=== PATIENT | male | born 1960 | race Caucasian/White ===

== ENCOUNTER 2017-10-27 19:57 | Inpatient (IN) | payer BC, OTHER ==
[2017-10-27 20:16] LABS: ADD MAN DIFF? NO
[2017-10-27 20:17] LABS: WHITE BLOOD COUNT 8.8 10^3/ul (4.8-10.8)
[2017-10-27 20:17] LABS: BASOPHIL # 0.1 10^3/ul (0.0-0.1); BASOPHILS % 1.1 % (0.0-2.0); EOSINOPHILS # 0.2 10^3/ul (0.0-0.5); EOSINOPHILS % 1.7 % (0.0-7.0); HEMATOCRIT 46.8 % (42.0-52.0); HEMOGLOBIN 15.1 g/dl (14.0-18.0); LYMPHOCYTES # 2.4 10^3/ul (0.8-2.9); LYMPHOCYTES % 27.9 % (15.0-51.0); MEAN CORPUSCULAR HEMOGLOBIN 29.4 pg (29.0-33.0); MEAN CORPUSCULAR HGB CONC 32.3 g/dl (32.0-37.0); MEAN CORPUSCULAR VOLUME 91.2 fl (82.0-101.0); MEAN PLATELET VOLUME 10.8 fl (7.4-10.4); MONOCYTE # 0.7 10^3/ul (0.3-0.9); NEUTROPHIL # 5.3 10^3/ul (1.6-7.5); NEUTROPHILS % 60.8 % (39.0-77.0); PLATELET COUNT 196 10^3/UL (140-415); RED BLOOD COUNT 5.13 10^6/ul (4.70-6.10); RED CELL DISTRIBUTION WIDTH 14.3 % (11.5-14.5)
[2017-10-27 20:34] LABS: INR 2.76; PT RATIO 2.3
[2017-10-27 20:38] LABS: BLOOD UREA NITROGEN 19 mg/dl (7-20); CALCIUM 9.7 mg/dl (8.4-10.2); CARBON DIOXIDE 22 mmol/L (21-31); CHLORIDE 103 mmol/L (97-110); CREATININE 1.24 mg/dl (0.61-1.24); GLUCOSE 135 mg/dl (70-220); SODIUM 139 mmol/L (135-144)
[2017-10-27 20:44] LABS: ANION GAP 18 (8-16); POTASSIUM 4.2 mmol/L (3.5-5.1)
[2017-10-27 20:48] LABS: TROPONIN-I 0.057 ng/ml (0.00-0.12)
[2017-10-27] MEDS: ASPIRIN 325 MG TAB PO (21:14)
[2017-10-27] MEDS ORDERED: DEXTROSE 5%-0.45% NACL 1,000 ML IV (21:41)
[2017-10-27] MEDS ORDERED: ACETAMINOPHEN 325 MG TAB PO ×2 (22:00)
[2017-10-27] MEDS ORDERED: BISACODYL (EC) 5 MG TAB PO (22:00)
[2017-10-27] MEDS ORDERED: morphine 2 MG INJ IV (22:00)
[2017-10-27] MEDS ORDERED: ZOLPIDEM 5 MG TAB PO (22:00)
[2017-10-27] MEDS ORDERED: ONDANSETRON 4 MG INJ IV ×2 (22:00)
[2017-10-27] MEDS ORDERED: MAGNESIUM HYDROXIDE 30ML CUP PO (22:00)
[2017-10-27] MEDS ORDERED: DOCUSATE SODIUM 100 MG CAP PO (22:00)
[2017-10-27] MEDS ORDERED: HYDROCODONE/APAP (5/325) TAB PO (22:00)
[2017-10-27] MEDS ORDERED: LORAZEPAM 2 MG INJ IV (22:00)
[2017-10-27] MEDS ORDERED: NACL 0.9% 3 ML SYG IV (22:00)
[2017-10-28 00:18] LABS: ADD UMIC YES; UR ASCORBIC ACID 40 mg/dL (NEGATIVE); UR BACTERIA FEW /HPF (NONE SEEN); UR BILIRUBIN (Dip) NEGATIVE (NEGATIVE); UR BLOOD (Dip) NEGATIVE (NEGATIVE); UR CLARITY SLIGHTLY CLOUDY (CLEAR); UR COLOR AMBER (YELLOW); UR GLUCOSE (Dip) 1+ mg/dL (NEGATIVE); UR KETONES (Dip) TRACE mg/dL (NEGATIVE); UR LEUKOCYTE ESTERASE (Dip) NEGATIVE Leu/ul (NEGATIVE); UR MUCUS MANY /HPF (NONE SEEN); UR NITRITE (Dip) NEGATIVE (NEGATIVE); UR RBC 10 /HPF (0-5); UR SPECIFIC GRAVITY (Dip) 1.024 (1.003-1.030); UR SQUAMOUS EPITHELIAL CELL FEW /HPF (FEW); UR TOTAL PROTEIN (Dip) 3+ mg/dl (NEGATIVE); UR UROBILINOGEN (Dip) 2+ mg/dL (NEGATIVE); UR WBC 14 /HPF (0-5)
[2017-10-28 00:22] LABS: CREATINE KINASE 134 IU/L (23-200)
[2017-10-28 00:31] LABS: AMPHETAMINE/METHAMPHETAMINE Negative (NEGATIVE); BARBITURATES Negative (NEGATIVE); BENZODIAZEPINES Negative (NEGATIVE); CANNABINOIDS Negative (NEGATIVE); COCAINE Negative (NEGATIVE); OPIATES Negative (NEGATIVE)
[2017-10-28 00:32] LABS: CK INDEX 1.2; TROPONIN-I 0.115 ng/ml (0.00-0.12)
[2017-10-28 00:40] LABS: CK-MB 1.57 ng/ml (0.0-2.4)
[2017-10-28 04:33] LABS: CREATINE KINASE 191 IU/L (23-200)
[2017-10-28 04:46] LABS: CK INDEX 1.1
[2017-10-28 04:47] LABS: CK-MB 2.17 ng/ml (0.0-2.4); TROPONIN-I 0.154 ng/ml (0.00-0.12)
[2017-10-28 04:56] LABS: ADD MAN DIFF? NO
[2017-10-28 05:01] LABS: WHITE BLOOD COUNT 8.3 10^3/ul (4.8-10.8)
[2017-10-28 05:01] LABS: BASOPHIL # 0.1 10^3/ul (0.0-0.1); BASOPHILS % 0.8 % (0.0-2.0); EOSINOPHILS # 0.1 10^3/ul (0.0-0.5); EOSINOPHILS % 1.4 % (0.0-7.0); HEMATOCRIT 43.1 % (42.0-52.0); HEMOGLOBIN 13.9 g/dl (14.0-18.0); LYMPHOCYTES # 1.4 10^3/ul (0.8-2.9); LYMPHOCYTES % 16.3 % (15.0-51.0); MEAN CORPUSCULAR HEMOGLOBIN 29.7 pg (29.0-33.0); MEAN CORPUSCULAR HGB CONC 32.3 g/dl (32.0-37.0); MEAN CORPUSCULAR VOLUME 92.1 fl (82.0-101.0); MONOCYTE # 0.7 10^3/ul (0.3-0.9); MONOCYTES % 8.4 % (0.0-11.0); NEUTROPHILS % 72.7 % (39.0-77.0); PLATELET COUNT 179 10^3/UL (140-415); RED BLOOD COUNT 4.68 10^6/ul (4.70-6.10); RED CELL DISTRIBUTION WIDTH 14.6 % (11.5-14.5)
[2017-10-28 05:45] LABS: ALANINE AMINOTRANSFERASE 34 IU/L (13-69); ALBUMIN 4.2 g/dl (3.3-4.9); ALBUMIN/GLOBULIN RATIO 1.35; ALKALINE PHOSPHATASE 114 IU/L (42-121); ANION GAP 15 (8-16); ASPARTATE AMINO TRANSFERASE 25 IU/L (15-46); BILIRUBIN,INDIRECT 0.3 mg/dl (0-1.1); BILIRUBIN,TOTAL 0.3 mg/dl (0.2-1.3); BLOOD UREA NITROGEN 23 mg/dl (7-20); CALCIUM 9.3 mg/dl (8.4-10.2); CARBON DIOXIDE 25 mmol/L (21-31); CHLORIDE 106 mmol/L (97-110); CHOL/HDL RATIO 2.7 RATIO; CHOLESTEROL 114 mg/dl (100-200); GLUCOSE 103 mg/dl (70-220); HDL CHOLESTEROL 41 mg/dl (28-71); LDL CHOLESTEROL,CALCULATED 60 mg/dl; MAGNESIUM 1.9 mg/dl (1.7-2.5); POTASSIUM 4.5 mmol/L (3.5-5.1); SODIUM 141 mmol/L (135-144); TOTAL PROTEIN 7.3 g/dl (6.1-8.1); TRIGLYCERIDES 65 mg/dl (0-149)
[2017-10-28] MEDS ORDERED: ALBUTEROL/IPRATROPIUM (NEB) 3 ML AMP HHN (06:00)
[2017-10-28] MEDS ORDERED: NICOTINE POLACRILEX 2 MG GUM BUCCAL (06:00)
[2017-10-28 06:15] LABS: THYROID STIMULATING HORMONE 0.668 MIU/L (0.465-4.680)
[2017-10-28] MEDS: metFORMIN (XR) 500 MG TAB PO ×2 (08:00→20:00)
[2017-10-28] MEDS: AMIODARONE 200 MG TAB PO (08:43)
[2017-10-28] MEDS: NICOTINE (7 MG/24 HR) PATCH TRANSDERM ×2 (08:43→08:49)
[2017-10-28] MEDS: BENAZEPRIL 20 MG TAB PO (08:45)
[2017-10-28] MEDS: AMLODIPINE 5 MG TAB PO (08:45)
[2017-10-28] MEDS: ASPIRIN (EC) 81 MG TAB PO (08:49)
[2017-10-28] MEDS: FAMOTIDINE 20 MG INJ IV ×2 (08:49→22:25)
[2017-10-28] MEDS ORDERED: BENAZEPRIL PO (09:00)
[2017-10-28] MEDS ORDERED: AMLODIPINE BESYLATE PO (09:00)
[2017-10-28] MEDS ORDERED: ASPIRIN 81 MG TAB PO (09:00)
[2017-10-28] MEDS ORDERED: [UNRECOGNIZED DRUG - OTHER] PO (09:00)
[2017-10-28 10:20] LABS: HEMOGLOBIN A1C 5.5 % (0-5.9)
[2017-10-28 10:41] LABS: CREATINE KINASE 193 IU/L (23-200)
[2017-10-28 10:53] LABS: CK INDEX 1.2; TROPONIN-I 0.112 ng/ml (0.00-0.12)
[2017-10-28 10:55] LABS: CK-MB 2.29 ng/ml (0.0-2.4)
[2017-10-28] MEDS: LORAZEPAM 2 MG INJ IV (12:03)
[2017-10-28] MEDS: HYPOGLYCEMIA PROTOCOL when Glucose is <70 mg/dL or symptomatic <90 mg/dL. XX (14:32)
[2017-10-28] MEDS ORDERED: DEXTROSE 50% 50 ML SYRINGE IV ×2 (15:00)
[2017-10-28] MEDS ORDERED: GLUCOSE GEL 15 GRAM TUBE BUCCAL (15:00)
[2017-10-28] MEDS ORDERED: GLUCOSE GEL 15 GRAM TUBE PO ×2 (15:00)
[2017-10-28] MEDS ORDERED: GLUCAGON 1 MG INJ IM (15:00)
[2017-10-28] MEDS: SOD CHLORIDE 0.9% 100 ML (16:37)
[2017-10-28] MEDS: IOHEXOL 100 ML (16:37)
[2017-10-28] MEDS: INSULIN ASPART [NOVOLOG] 3 ML PEN SC (21:00)
[2017-10-28] MEDS: BUPROPION (SR) 100 MG TAB PO (21:00)
[2017-10-28] MEDS: TAMSULOSIN (SR) 0.4 MG CAP PO (22:25)
[2017-10-28] MEDS: ATORVASTATIN 40 MG TAB PO (22:25)
[2017-10-29] MEDS: WARFARIN 5 MG TAB PO (00:50)
[2017-10-29 06:07] LABS: ADD MAN DIFF? NO
[2017-10-29 06:32] LABS: BASOPHIL # 0.1 10^3/ul (0.0-0.1); BASOPHILS % 0.9 % (0.0-2.0); EOSINOPHILS # 0.2 10^3/ul (0.0-0.5); EOSINOPHILS % 2.1 % (0.0-7.0); HEMOGLOBIN 13.8 g/dl (14.0-18.0); LYMPHOCYTES # 1.7 10^3/ul (0.8-2.9); LYMPHOCYTES % 21.8 % (15.0-51.0); MEAN CORPUSCULAR HEMOGLOBIN 30.1 pg (29.0-33.0); MEAN CORPUSCULAR HGB CONC 32.1 g/dl (32.0-37.0); MEAN CORPUSCULAR VOLUME 93.7 fl (82.0-101.0); MEAN PLATELET VOLUME 11.2 fl (7.4-10.4); MONOCYTE # 0.5 10^3/ul (0.3-0.9); MONOCYTES % 6.8 % (0.0-11.0); NEUTROPHIL # 5.4 10^3/ul (1.6-7.5); PLATELET COUNT 166 10^3/UL (140-415); RED BLOOD COUNT 4.59 10^6/ul (4.70-6.10); RED CELL DISTRIBUTION WIDTH 14.6 % (11.5-14.5)
[2017-10-29 06:32] LABS: WHITE BLOOD COUNT 7.9 10^3/ul (4.8-10.8)
[2017-10-29 06:35] LABS: ALANINE AMINOTRANSFERASE 32 IU/L (13-69); ALBUMIN/GLOBULIN RATIO 1.37; ALKALINE PHOSPHATASE 106 IU/L (42-121); ANION GAP 12 (8-16); ASPARTATE AMINO TRANSFERASE 27 IU/L (15-46); BILIRUBIN,INDIRECT 0.3 mg/dl (0-1.1); BILIRUBIN,TOTAL 0.3 mg/dl (0.2-1.3); BLOOD UREA NITROGEN 22 mg/dl (7-20); CALCIUM 9.6 mg/dl (8.4-10.2); CARBON DIOXIDE 26 mmol/L (21-31); CHLORIDE 106 mmol/L (97-110); CREATININE 1.04 mg/dl (0.61-1.24); GLUCOSE 114 mg/dl (70-220); POTASSIUM 4.6 mmol/L (3.5-5.1); SODIUM 139 mmol/L (135-144); TOTAL PROTEIN 6.9 g/dl (6.1-8.1)
[2017-10-29 06:38] LABS: CREATINE KINASE 151 IU/L (23-200)
[2017-10-29 06:39] LABS: INR 3.01; PROTIME 32.1 Sec (11.9-14.9); PT RATIO 2.5
[2017-10-29 06:49] LABS: CK INDEX 0.9; TROPONIN-I 0.088 ng/ml (0.00-0.12)
[2017-10-29 06:57] LABS: FREE T4 (FREE THYROXINE) 1.17 ng/dl (0.64-1.79)
[2017-10-29] MEDS: INSULIN ASPART [NOVOLOG] 3 ML PEN SC ×2 (07:55→11:46)
[2017-10-29] MEDS: metFORMIN (XR) 500 MG TAB PO (08:05)
[2017-10-29 08:09] LABS: MAGNESIUM 1.8 mg/dl (1.7-2.5)
[2017-10-29 08:09] LABS: CHOL/HDL RATIO 2.8 RATIO; CHOLESTEROL 111 mg/dl (100-200); HDL CHOLESTEROL 39 mg/dl (28-71); LDL CHOLESTEROL,CALCULATED 56 mg/dl; TRIGLYCERIDES 81 mg/dl (0-149)
[2017-10-29 08:12] LABS: B-TYPE NATRIURETIC PEPTIDE 1260 PG/ML (0-125)
[2017-10-29] MEDS: AMIODARONE 200 MG TAB PO ×2 (09:00)
[2017-10-29] MEDS: NICOTINE (7 MG/24 HR) PATCH TRANSDERM (09:09)
[2017-10-29] MEDS: ASPIRIN (EC) 81 MG TAB PO (09:16)
[2017-10-29] MEDS: FAMOTIDINE 20 MG TAB PO (09:25)
== END 2017-10-29 13:32 | disposition home or self-care (01) | DRG 65 ==
LOC: E/R 19:57 → TEL 21:43
PROVIDERS: Hospitalist
DX: I63.9 Cerebral infarction, unspecified (principal); Z68.41 Body mass index [BMI] 40.0-44.9, adult; I42.9 Cardiomyopathy, unspecified; E66.01 Morbid (severe) obesity due to excess calories; I11.0 Hypertensive heart disease with heart failure; I50.9 Heart failure, unspecified; I48.0 Paroxysmal atrial fibrillation; I48.2 Chronic atrial fibrillation; I25.10 Atherosclerotic heart disease of native coronary artery without angina pectoris; E78.5 Hyperlipidemia, unspecified; E11.9 Type 2 diabetes mellitus without complications; N40.0 Benign prostatic hyperplasia without lower urinary tract symptoms; F32.9 Major depressive disorder, single episode, unspecified; G47.33 Obstructive sleep apnea (adult) (pediatric); I25.5 Ischemic cardiomyopathy; F17.210 Nicotine dependence, cigarettes, uncomplicated; Z71.3 Dietary counseling and surveillance; Z79.82 Long term (current) use of aspirin; Z79.4 Long term (current) use of insulin; Z79.01 Long term (current) use of anticoagulants; Z95.1 Presence of aortocoronary bypass graft; Z95.2 Presence of prosthetic heart valve
CPT/HCPCS: 36415; 70450; 70496; 70544; 70549; 70551; 71045; 80048; 80053; 80061; 80307; 81001; 82550; 82553; 82962; 83036; 83735; 83880; 84439; 84443; 84484; 85025; 85610; 85730; 87081; 87086; 92610; 93005; 93306; 93880; 96374; 97163; 99291-25

== ENCOUNTER 2018-01-22 14:57 | Inpatient (IN) | payer BC ==
[2018-01-22 15:21] LABS: ADD MAN DIFF? NO
[2018-01-22] MEDS: ASPIRIN 81 MG TAB PO (15:22)
[2018-01-22] MEDS: FUROSEMIDE 40 MG INJ IV (15:22)
[2018-01-22] MEDS: NITROGLYCERIN 2% 1 GM OINT PKT TD (15:23)
[2018-01-22 15:25] LABS: BASOPHIL # 0.1 10^3/ul (0.0-0.1); EOSINOPHILS # 0.2 10^3/ul (0.0-0.5); EOSINOPHILS % 2.7 % (0.0-7.0); HEMATOCRIT 43.9 % (42.0-52.0); HEMOGLOBIN 14.3 g/dl (14.0-18.0); LYMPHOCYTES # 1.6 10^3/ul (0.8-2.9); LYMPHOCYTES % 22.8 % (15.0-51.0); MEAN CORPUSCULAR HEMOGLOBIN 29.6 pg (29.0-33.0); MEAN CORPUSCULAR HGB CONC 32.6 g/dl (32.0-37.0); MEAN CORPUSCULAR VOLUME 90.9 fl (82.0-101.0); MEAN PLATELET VOLUME 11.6 fl (7.4-10.4); MONOCYTE # 0.5 10^3/ul (0.3-0.9); MONOCYTES % 6.9 % (0.0-11.0); NEUTROPHIL # 4.7 10^3/ul (1.6-7.5); NEUTROPHILS % 66.3 % (39.0-77.0); PLATELET COUNT 122 10^3/UL (140-415); RED BLOOD COUNT 4.83 10^6/ul (4.70-6.10); RED CELL DISTRIBUTION WIDTH 14.5 % (11.5-14.5)
[2018-01-22 15:25] LABS: WHITE BLOOD COUNT 7.1 10^3/ul (4.8-10.8)
[2018-01-22] MEDS ORDERED: ONDANSETRON 4 MG INJ IV ×2 (15:30→17:30)
[2018-01-22] MEDS ORDERED: ACETAMINOPHEN 325 MG TAB PO ×2 (15:30→17:30)
[2018-01-22 15:41] LABS: ANION GAP 16 (8-16); BLOOD UREA NITROGEN 20 mg/dl (7-20); CARBON DIOXIDE 25 mmol/L (21-31); CHLORIDE 105 mmol/L (97-110); CREATININE 1.15 mg/dl (0.61-1.24); GLUCOSE 148 mg/dl (70-220); POTASSIUM 3.7 mmol/L (3.5-5.1); SODIUM 142 mmol/L (135-144)
[2018-01-22 15:52] LABS: TROPONIN-I 0.061 ng/ml (0.00-0.12)
[2018-01-22 15:55] LABS: INR 4.99; PROTIME 48.1 Sec (11.9-14.9); PT RATIO 3.8
[2018-01-22 15:56] LABS: PARTIAL THROMBOPLASTIN TIME 60.4 Sec (25.0-35.0)
[2018-01-22] MEDS ORDERED: MAGNESIUM HYDROXIDE 30ML CUP PO (17:30)
[2018-01-22] MEDS ORDERED: DOCUSATE SODIUM 100 MG CAP PO (17:30)
[2018-01-22] MEDS ORDERED: BISACODYL 10 MG SUPP PR (17:30)
[2018-01-22] MEDS ORDERED: NITROGLYCERIN (SL) 0.4 MG TAB SL (17:30)
[2018-01-22] MEDS ORDERED: NACL 0.9% 3 ML SYG IV (17:30)
[2018-01-22] MEDS: NITROGLYCERIN (SL) 0.4 MG TAB SL (18:11)
[2018-01-22] MEDS: FAMOTIDINE 20 MG TAB PO (20:26)
[2018-01-22] MEDS: ATORVASTATIN 40 MG TAB PO (20:26)
[2018-01-22] MEDS: LORAZEPAM 0.5 MG TAB PO (23:25)
[2018-01-22 23:38] LABS: CREATINE KINASE 103 IU/L (23-200)
[2018-01-22 23:50] LABS: CK INDEX 1.9; TROPONIN-I 0.108 ng/ml (0.00-0.12)
[2018-01-23 00:04] LABS: CK-MB 1.99 ng/ml (0.0-2.4)
[2018-01-23] MEDS: morphine 2 MG INJ IV (03:24)
[2018-01-23 06:48] LABS: ADD MAN DIFF? NO
[2018-01-23 06:51] LABS: BASOPHIL # 0.1 10^3/ul (0.0-0.1); EOSINOPHILS # 0.2 10^3/ul (0.0-0.5); EOSINOPHILS % 2.9 % (0.0-7.0); HEMATOCRIT 43.6 % (42.0-52.0); LYMPHOCYTES # 1.5 10^3/ul (0.8-2.9); LYMPHOCYTES % 18.9 % (15.0-51.0); MEAN CORPUSCULAR HEMOGLOBIN 29.3 pg (29.0-33.0); MEAN CORPUSCULAR HGB CONC 32.1 g/dl (32.0-37.0); MEAN CORPUSCULAR VOLUME 91.2 fl (82.0-101.0); MEAN PLATELET VOLUME 11.3 fl (7.4-10.4); MONOCYTE # 0.5 10^3/ul (0.3-0.9); MONOCYTES % 6.4 % (0.0-11.0); NEUTROPHIL # 5.5 10^3/ul (1.6-7.5); NEUTROPHILS % 70.4 % (39.0-77.0); PLATELET COUNT 127 10^3/UL (140-415); POSITIVE DIFF @See below; RED BLOOD COUNT 4.78 10^6/ul (4.70-6.10); RED CELL DISTRIBUTION WIDTH 14.6 % (11.5-14.5)
[2018-01-23 06:51] LABS: WHITE BLOOD COUNT 7.9 10^3/ul (4.8-10.8)
[2018-01-23] MEDS: FUROSEMIDE 40 MG INJ IV ×3 (06:57→22:15)
[2018-01-23 07:07] LABS: CREATINE KINASE 95 IU/L (23-200)
[2018-01-23 07:12] LABS: CK INDEX 1.8; TROPONIN-I 0.111 ng/ml (0.00-0.12)
[2018-01-23 07:15] LABS: CK-MB 1.72 ng/ml (0.0-2.4)
[2018-01-23 07:16] LABS: FREE T4 (FREE THYROXINE) 1.52 ng/dl (0.64-1.79)
[2018-01-23 07:18] LABS: INR 4.28; PROTIME 42.6 Sec (11.9-14.9); PT RATIO 3.3
[2018-01-23 07:19] LABS: PARTIAL THROMBOPLASTIN TIME 61.8 Sec (25.0-35.0)
[2018-01-23 07:27] LABS: ALANINE AMINOTRANSFERASE 31 IU/L (13-69); ALBUMIN/GLOBULIN RATIO 1.33; ALKALINE PHOSPHATASE 138 IU/L (42-121); ANION GAP 13 (8-16); ASPARTATE AMINO TRANSFERASE 27 IU/L (15-46); BILIRUBIN,INDIRECT 0.7 mg/dl (0-1.1); BILIRUBIN,TOTAL 0.7 mg/dl (0.2-1.3); BLOOD UREA NITROGEN 19 mg/dl (7-20); CALCIUM 8.9 mg/dl (8.4-10.2); CARBON DIOXIDE 28 mmol/L (21-31); CHLORIDE 104 mmol/L (97-110); CHOLESTEROL 114 mg/dl (100-200); GLUCOSE 109 mg/dl (70-220); HDL CHOLESTEROL 38 mg/dl (28-71); LDL CHOLESTEROL,CALCULATED 63 mg/dl; MAGNESIUM 1.9 mg/dl (1.7-2.5); POTASSIUM 4.1 mmol/L (3.5-5.1); SODIUM 141 mmol/L (135-144); TRIGLYCERIDES 63 mg/dl (0-149)
[2018-01-23 07:56] LABS: THYROID STIMULATING HORMONE 0.782 MIU/L (0.465-4.680)
[2018-01-23] MEDS: AMIODARONE 200 MG TAB PO (08:51)
[2018-01-23] MEDS: ASPIRIN (EC) 81 MG TAB PO (08:52)
[2018-01-23] MEDS: BENAZEPRIL 20 MG TAB PO (08:52)
[2018-01-23] MEDS: AMLODIPINE 5 MG TAB PO (08:52)
[2018-01-23] MEDS: FAMOTIDINE 20 MG TAB PO ×2 (08:52→21:35)
[2018-01-23] MEDS ORDERED: FAMOTIDINE 20 MG TAB PO (09:00)
[2018-01-23] MEDS: ATORVASTATIN 40 MG TAB PO (21:34)
[2018-01-23] MEDS: TAMSULOSIN (SR) 0.4 MG CAP PO (21:35)
[2018-01-23] MEDS: ALBUTEROL/IPRATROPIUM (NEB) 3 ML AMP HHN (22:22)
[2018-01-24] MEDS: ALBUTEROL/IPRATROPIUM (NEB) 3 ML AMP HHN ×5 (02:06→20:09)
[2018-01-24] MEDS: FUROSEMIDE 40 MG INJ IV (05:18)
[2018-01-24 05:49] LABS: ADD MAN DIFF? NO
[2018-01-24 05:54] LABS: BASOPHIL # 0.1 10^3/ul (0.0-0.1); BASOPHILS % 1.2 % (0.0-2.0); EOSINOPHILS # 0.3 10^3/ul (0.0-0.5); EOSINOPHILS % 4.4 % (0.0-7.0); HEMATOCRIT 42.1 % (42.0-52.0); HEMOGLOBIN 13.4 g/dl (14.0-18.0); LYMPHOCYTES # 1.7 10^3/ul (0.8-2.9); MEAN CORPUSCULAR HEMOGLOBIN 29.3 pg (29.0-33.0); MEAN CORPUSCULAR HGB CONC 31.8 g/dl (32.0-37.0); MEAN CORPUSCULAR VOLUME 91.9 fl (82.0-101.0); MONOCYTE # 0.6 10^3/ul (0.3-0.9); MONOCYTES % 7.7 % (0.0-11.0); NEUTROPHIL # 4.6 10^3/ul (1.6-7.5); NEUTROPHILS % 63.3 % (39.0-77.0); PLATELET COUNT 121 10^3/UL (140-415); POSITIVE DIFF @See below; RED BLOOD COUNT 4.58 10^6/ul (4.70-6.10); RED CELL DISTRIBUTION WIDTH 14.6 % (11.5-14.5)
[2018-01-24 05:54] LABS: WHITE BLOOD COUNT 7.3 10^3/ul (4.8-10.8)
[2018-01-24 06:12] LABS: INR 3.02; PROTIME 32.2 Sec (11.9-14.9); PT RATIO 2.5
[2018-01-24 06:13] LABS: PARTIAL THROMBOPLASTIN TIME 52.4 Sec (25.0-35.0)
[2018-01-24 06:27] LABS: MAGNESIUM 1.8 mg/dl (1.7-2.5)
[2018-01-24 06:27] LABS: PHOSPHORUS 5.1 mg/dl (2.5-4.9)
[2018-01-24 06:56] LABS: ANION GAP 13 (8-16); BLOOD UREA NITROGEN 27 mg/dl (7-20); CALCIUM 8.6 mg/dl (8.4-10.2); CARBON DIOXIDE 27 mmol/L (21-31); CHLORIDE 105 mmol/L (97-110); CREATININE 1.34 mg/dl (0.61-1.24); GLUCOSE 113 mg/dl (70-220); POTASSIUM 4.1 mmol/L (3.5-5.1); SODIUM 141 mmol/L (135-144)
[2018-01-24] MEDS: BENAZEPRIL 20 MG TAB PO (09:00)
[2018-01-24] MEDS: AMIODARONE 200 MG TAB PO (09:00)
[2018-01-24] MEDS: SPIRONOLACTONE 25 MG TAB PO (09:16)
[2018-01-24] MEDS: ASPIRIN (EC) 81 MG TAB PO (09:16)
[2018-01-24] MEDS: FAMOTIDINE 20 MG TAB PO ×2 (09:16→22:28)
[2018-01-24] MEDS: WARFARIN 5 MG TAB GTB (17:30)
[2018-01-24] MEDS ORDERED: FUROSEMIDE 20 MG INJ IV (18:00)
[2018-01-24] MEDS: ATORVASTATIN 40 MG TAB PO (22:28)
[2018-01-24] MEDS: TAMSULOSIN (SR) 0.4 MG CAP PO (22:28)
[2018-01-24] MEDS: LORAZEPAM 0.5 MG TAB PO (22:40)
[2018-01-25] MEDS: ALBUTEROL/IPRATROPIUM (NEB) 3 ML AMP HHN ×4 (01:52→20:28)
[2018-01-25 06:25] LABS: ADD MAN DIFF? NO
[2018-01-25 06:29] LABS: BASOPHIL # 0.1 10^3/ul (0.0-0.1); BASOPHILS % 1.1 % (0.0-2.0); EOSINOPHILS # 0.4 10^3/ul (0.0-0.5); EOSINOPHILS % 4.3 % (0.0-7.0); HEMATOCRIT 41.9 % (42.0-52.0); HEMOGLOBIN 13.4 g/dl (14.0-18.0); LYMPHOCYTES # 1.5 10^3/ul (0.8-2.9); LYMPHOCYTES % 17.4 % (15.0-51.0); MEAN CORPUSCULAR HEMOGLOBIN 29.3 pg (29.0-33.0); MEAN CORPUSCULAR VOLUME 91.5 fl (82.0-101.0); MEAN PLATELET VOLUME 11.5 fl (7.4-10.4); MONOCYTE # 0.6 10^3/ul (0.3-0.9); MONOCYTES % 6.8 % (0.0-11.0); NEUTROPHILS % 70.2 % (39.0-77.0); PLATELET COUNT 126 10^3/UL (140-415); POSITIVE DIFF @See below; RED BLOOD COUNT 4.58 10^6/ul (4.70-6.10); RED CELL DISTRIBUTION WIDTH 14.7 % (11.5-14.5)
[2018-01-25 06:29] LABS: WHITE BLOOD COUNT 8.5 10^3/ul (4.8-10.8)
[2018-01-25 06:47] LABS: INR 2.59; PROTIME 28.5 Sec (11.9-14.9); PT RATIO 2.2
[2018-01-25 06:48] LABS: PARTIAL THROMBOPLASTIN TIME 45.4 Sec (25.0-35.0)
[2018-01-25 06:53] LABS: ANION GAP 11 (8-16); BLOOD UREA NITROGEN 25 mg/dl (7-20); CALCIUM 9.4 mg/dl (8.4-10.2); CARBON DIOXIDE 28 mmol/L (21-31); CHLORIDE 107 mmol/L (97-110); CREATININE 1.23 mg/dl (0.61-1.24); GLUCOSE 108 mg/dl (70-220); POTASSIUM 4.3 mmol/L (3.5-5.1); SODIUM 142 mmol/L (135-144)
[2018-01-25 06:57] LABS: MAGNESIUM 1.8 mg/dl (1.7-2.5)
[2018-01-25 06:57] LABS: PHOSPHORUS 4.7 mg/dl (2.5-4.9)
[2018-01-25] MEDS: FUROSEMIDE 20 MG INJ IV (08:34)
[2018-01-25] MEDS: FAMOTIDINE 20 MG TAB PO ×2 (09:02→20:23)
[2018-01-25] MEDS: SPIRONOLACTONE 25 MG TAB PO (09:02)
[2018-01-25] MEDS: AMIODARONE 200 MG TAB PO (09:02)
[2018-01-25] MEDS: BENAZEPRIL 10 MG TAB PO (09:02)
[2018-01-25] MEDS: MAGNESIUM SULFATE 2 GM/50 ML 50 ML IVPB (13:31)
[2018-01-25] MEDS: WARFARIN 5 MG TAB GTB (16:54)
[2018-01-25] MEDS: TAMSULOSIN (SR) 0.4 MG CAP PO (20:23)
[2018-01-25] MEDS: ATORVASTATIN 40 MG TAB PO (20:23)
[2018-01-26] MEDS: ALBUTEROL/IPRATROPIUM (NEB) 3 ML AMP HHN ×4 (02:17→20:54)
[2018-01-26] MEDS: LORAZEPAM 0.5 MG TAB PO (03:07)
[2018-01-26] MEDS: FUROSEMIDE 20 MG INJ IV (08:22)
[2018-01-26] MEDS: SPIRONOLACTONE 25 MG TAB PO (08:23)
[2018-01-26] MEDS: AMIODARONE 200 MG TAB PO ×2 (08:23→20:33)
[2018-01-26] MEDS: BENAZEPRIL 10 MG TAB PO (08:23)
[2018-01-26] MEDS: FAMOTIDINE 20 MG TAB PO ×2 (08:23→20:31)
[2018-01-26 08:24] LABS: ADD MAN DIFF? NO
[2018-01-26 08:32] LABS: WHITE BLOOD COUNT 7.1 10^3/ul (4.8-10.8)
[2018-01-26 08:32] LABS: BASOPHIL # 0.1 10^3/ul (0.0-0.1); BASOPHILS % 1.3 % (0.0-2.0); EOSINOPHILS # 0.3 10^3/ul (0.0-0.5); EOSINOPHILS % 4.8 % (0.0-7.0); HEMATOCRIT 43.4 % (42.0-52.0); HEMOGLOBIN 13.6 g/dl (14.0-18.0); LYMPHOCYTES # 1.5 10^3/ul (0.8-2.9); LYMPHOCYTES % 21.4 % (15.0-51.0); MEAN CORPUSCULAR HEMOGLOBIN 29.1 pg (29.0-33.0); MEAN CORPUSCULAR HGB CONC 31.3 g/dl (32.0-37.0); MEAN CORPUSCULAR VOLUME 92.7 fl (82.0-101.0); MEAN PLATELET VOLUME 11.2 fl (7.4-10.4); MONOCYTE # 0.5 10^3/ul (0.3-0.9); MONOCYTES % 7.1 % (0.0-11.0); NEUTROPHIL # 4.6 10^3/ul (1.6-7.5); NEUTROPHILS % 65.1 % (39.0-77.0); PLATELET COUNT 124 10^3/UL (140-415); POSITIVE DIFF @See below; RED BLOOD COUNT 4.68 10^6/ul (4.70-6.10); RED CELL DISTRIBUTION WIDTH 14.7 % (11.5-14.5)
[2018-01-26 08:46] LABS: MAGNESIUM 1.9 mg/dl (1.7-2.5)
[2018-01-26 08:51] LABS: ANION GAP 17 (8-16); BLOOD UREA NITROGEN 25 mg/dl (7-20); CALCIUM 9.3 mg/dl (8.4-10.2); CARBON DIOXIDE 27 mmol/L (21-31); CHLORIDE 105 mmol/L (97-110); CREATININE 1.17 mg/dl (0.61-1.24); GLUCOSE 102 mg/dl (70-220); INR 2.46; POTASSIUM 4.8 mmol/L (3.5-5.1); PROTIME 27.3 Sec (11.9-14.9); PT RATIO 2.1; SODIUM 144 mmol/L (135-144)
[2018-01-26 08:52] LABS: PARTIAL THROMBOPLASTIN TIME 46.2 Sec (25.0-35.0)
[2018-01-26] MEDS: MAGNESIUM SULFATE 2 GM/50 ML 50 ML IVPB (11:12)
[2018-01-26] MEDS: WARFARIN 5 MG TAB GTB (18:03)
[2018-01-26] MEDS: TAMSULOSIN (SR) 0.4 MG CAP PO (20:30)
[2018-01-26] MEDS: ATORVASTATIN 40 MG TAB PO (20:32)
[2018-01-27] MEDS: ALBUTEROL/IPRATROPIUM (NEB) 3 ML AMP HHN ×4 (02:00→20:31)
[2018-01-27 07:11] LABS: ADD MAN DIFF? NO
[2018-01-27 07:14] LABS: BASOPHIL # 0.1 10^3/ul (0.0-0.1); EOSINOPHILS # 0.3 10^3/ul (0.0-0.5); EOSINOPHILS % 4.4 % (0.0-7.0); HEMATOCRIT 40.6 % (42.0-52.0); HEMOGLOBIN 12.9 g/dl (14.0-18.0); LYMPHOCYTES # 1.6 10^3/ul (0.8-2.9); LYMPHOCYTES % 20.2 % (15.0-51.0); MEAN CORPUSCULAR HEMOGLOBIN 29.2 pg (29.0-33.0); MEAN CORPUSCULAR HGB CONC 31.8 g/dl (32.0-37.0); MEAN CORPUSCULAR VOLUME 91.9 fl (82.0-101.0); MEAN PLATELET VOLUME 11.2 fl (7.4-10.4); MONOCYTE # 0.6 10^3/ul (0.3-0.9); MONOCYTES % 7.7 % (0.0-11.0); NEUTROPHIL # 5.1 10^3/ul (1.6-7.5); NEUTROPHILS % 66.4 % (39.0-77.0); PLATELET COUNT 118 10^3/UL (140-415); POSITIVE DIFF @See below; RED BLOOD COUNT 4.42 10^6/ul (4.70-6.10); RED CELL DISTRIBUTION WIDTH 14.6 % (11.5-14.5)
[2018-01-27 07:14] LABS: WHITE BLOOD COUNT 7.7 10^3/ul (4.8-10.8)
[2018-01-27 07:33] LABS: MAGNESIUM 1.9 mg/dl (1.7-2.5)
[2018-01-27 07:33] LABS: ANION GAP 12 (8-16); BLOOD UREA NITROGEN 27 mg/dl (7-20); CALCIUM 8.9 mg/dl (8.4-10.2); CARBON DIOXIDE 27 mmol/L (21-31); CHLORIDE 106 mmol/L (97-110); CREATININE 1.13 mg/dl (0.61-1.24); GLUCOSE 101 mg/dl (70-220); POTASSIUM 4.4 mmol/L (3.5-5.1); SODIUM 141 mmol/L (135-144)
[2018-01-27] MEDS: FAMOTIDINE 20 MG TAB PO ×2 (08:15→21:00)
[2018-01-27] MEDS: SPIRONOLACTONE 25 MG TAB PO (08:15)
[2018-01-27] MEDS: MAGNESIUM SULFATE 2 GM/50 ML 50 ML IVPB (08:16)
[2018-01-27] MEDS: AMIODARONE 200 MG TAB PO ×2 (08:16→21:01)
[2018-01-27] MEDS: BENAZEPRIL 10 MG TAB PO (08:16)
[2018-01-27] MEDS ORDERED: VANCOMYCIN 1 GM 250 ML IVPB (13:00)
[2018-01-27] MEDS ORDERED: POLYMYXIN/BACITRACIN 1L IRRIG IRR (13:00)
[2018-01-27] MEDS ORDERED: MIDAZOLAM 1 MG/ML 2 ML INJ (15:25)
[2018-01-27] MEDS ORDERED: PROPOFOL 100 ML (15:25)
[2018-01-27] MEDS ORDERED: CEFAZOLIN 1 GM/50 ML (PMX) 50 ML IVPB (15:25)
[2018-01-27] MEDS ORDERED: FENTAnyl 50 MCG/ML VIAL (15:52)
[2018-01-27 16:28] LABS: INR 2.36; PROTIME 26.4 Sec (11.9-14.9); PT RATIO 2.1
[2018-01-27] MEDS ORDERED: FENTAnyl 50 MCG/ML VIAL IV (20:00)
[2018-01-27] MEDS ORDERED: ONDANSETRON 4 MG INJ IV (20:00)
[2018-01-27] MEDS: TAMSULOSIN (SR) 0.4 MG CAP PO (21:00)
[2018-01-27] MEDS: ATORVASTATIN 40 MG TAB PO (21:00)
[2018-01-27] MEDS: WARFARIN 5 MG TAB GTB (21:01)
[2018-01-27] MEDS: OXYCODONE/ACETAMINOPHEN (5/325) TAB PO (21:02)
[2018-01-28] MEDS: ALBUTEROL/IPRATROPIUM (NEB) 3 ML AMP HHN ×3 (01:07→14:00)
[2018-01-28 08:54] LABS: ADD MAN DIFF? NO
[2018-01-28] MEDS: CEFAZOLIN 2 GM/50 ML (PMX) 50 ML IVPB ×2 (08:55→13:21)
[2018-01-28] MEDS: FAMOTIDINE 20 MG TAB PO (08:55)
[2018-01-28] MEDS: SPIRONOLACTONE 25 MG TAB PO (08:55)
[2018-01-28 08:56] LABS: BASOPHIL # 0.1 10^3/ul (0.0-0.1); BASOPHILS % 0.6 % (0.0-2.0); EOSINOPHILS # 0.2 10^3/ul (0.0-0.5); EOSINOPHILS % 2.7 % (0.0-7.0); HEMATOCRIT 38.2 % (42.0-52.0); HEMOGLOBIN 12.2 g/dl (14.0-18.0); LYMPHOCYTES # 1.2 10^3/ul (0.8-2.9); LYMPHOCYTES % 15.3 % (15.0-51.0); MEAN CORPUSCULAR HEMOGLOBIN 29.6 pg (29.0-33.0); MEAN CORPUSCULAR HGB CONC 31.9 g/dl (32.0-37.0); MEAN CORPUSCULAR VOLUME 92.7 fl (82.0-101.0); MEAN PLATELET VOLUME 11.8 fl (7.4-10.4); MONOCYTE # 0.5 10^3/ul (0.3-0.9); MONOCYTES % 6.4 % (0.0-11.0); NEUTROPHILS % 74.6 % (39.0-77.0); PLATELET COUNT 108 10^3/UL (140-415); RED BLOOD COUNT 4.12 10^6/ul (4.70-6.10); RED CELL DISTRIBUTION WIDTH 14.7 % (11.5-14.5)
[2018-01-28] MEDS: AMIODARONE 200 MG TAB PO (08:56)
[2018-01-28] MEDS: BENAZEPRIL 10 MG TAB PO (08:56)
[2018-01-28 09:25] LABS: ANION GAP 15 (8-16); BLOOD UREA NITROGEN 29 mg/dl (7-20); CARBON DIOXIDE 25 mmol/L (21-31); CHLORIDE 104 mmol/L (97-110); CREATININE 1.09 mg/dl (0.61-1.24); GLUCOSE 125 mg/dl (70-220); INR 2.63; MAGNESIUM 1.9 mg/dl (1.7-2.5); POTASSIUM 4.8 mmol/L (3.5-5.1); PROTIME 28.8 Sec (11.9-14.9); PT RATIO 2.3; SODIUM 139 mmol/L (135-144)
[2018-01-28] MEDS: FUROSEMIDE 20 MG INJ IV (15:00)
[2018-01-28] MEDS: MAGNESIUM SULFATE 2 GM/50 ML 50 ML IVPB (15:01)
[2018-01-29] MEDS ORDERED: MAGNESIUM OXIDE 400 MG TAB PO (09:00)
[2018-01-29] MEDS ORDERED: FUROSEMIDE 40 MG TAB PO (09:00)
== END 2018-01-28 16:34 | disposition home health service (06) | DRG 245 ==
LOC: TEL 23:13 → E/R 14:57 → TEL 23:13 → MS3 15:28 → TEL 21:59
PROC: 0JH609Z Insertion of Cardiac Resynchronization Defibrillator Pulse Generator into Chest Subcutaneous Tissue and Fascia, Open Approach (ICD-10-PCS; principal; 2018-01-27 14:55)
PROC: 02HL3JZ Insertion of Pacemaker Lead into Left Ventricle, Percutaneous Approach (ICD-10-PCS; 2018-01-27 14:55)
PROC: 02H63JZ Insertion of Pacemaker Lead into Right Atrium, Percutaneous Approach (ICD-10-PCS; 2018-01-27 14:55)
PROC: 02HK3JZ Insertion of Pacemaker Lead into Right Ventricle, Percutaneous Approach (ICD-10-PCS; 2018-01-27 14:55)
PROC: 3E0102A Introduction of Anti-Infective Envelope into Subcutaneous Tissue, Open Approach (ICD-10-PCS; 2018-01-27 14:55)
DX: I11.0 Hypertensive heart disease with heart failure (principal); J96.90 Respiratory failure, unspecified, unspecified whether with hypoxia or hypercapnia; I25.810 Atherosclerosis of coronary artery bypass graft(s) without angina pectoris; Z68.42 Body mass index [BMI] 45.0-49.9, adult; I47.2 Ventricular tachycardia; R55 Syncope and collapse; I50.23 Acute on chronic systolic (congestive) heart failure; Z91.14 Patient's other noncompliance with medication regimen; I48.0 Paroxysmal atrial fibrillation; E66.01 Morbid (severe) obesity due to excess calories; I25.5 Ischemic cardiomyopathy; Z86.73 Personal history of transient ischemic attack (TIA), and cerebral infarction without residual deficits; E78.5 Hyperlipidemia, unspecified; N40.0 Benign prostatic hyperplasia without lower urinary tract symptoms; F41.9 Anxiety disorder, unspecified; Z95.2 Presence of prosthetic heart valve; Z79.01 Long term (current) use of anticoagulants; Z95.1 Presence of aortocoronary bypass graft; Z87.891 Personal history of nicotine dependence; R79.1 Abnormal coagulation profile; R23.3 Spontaneous ecchymoses
CPT/HCPCS: 33240; 33249; 36415; 71045; 80048; 80053; 80061; 82550; 82553; 83735; 84100; 84439; 84443; 84484; 85025; 85610; 85730; 93005; 93306; 94640; 94660; 94664; 96374; 99285-25; G0378

== ENCOUNTER 2018-12-25 22:30 | Emergency (ER) | payer BC | END 2018-12-26 00:50 | disposition home or self-care (01) | LOC: E/R 22:30 | DX: S80.12XA Contusion of left lower leg, initial encounter (principal); I11.0 Hypertensive heart disease with heart failure; I50.9 Heart failure, unspecified; X58.XXXA Exposure to other specified factors, initial encounter; Y92.9 Unspecified place or not applicable; Z79.01 Long term (current) use of anticoagulants; Z79.82 Long term (current) use of aspirin; Z95.1 Presence of aortocoronary bypass graft | CPT/HCPCS: 93971; 99284-25 ==